=== PATIENT | male | born 1955 | race Caucasian/White ===

== ENCOUNTER 2022-03-21 13:52 | Inpatient (IN) | payer BC ==
[2022-03-21 15:49] VITALS: BMI 31.9
[2022-03-21] MEDS ORDERED: METHOCARBAMOL 500 MG TABLET PO PRN (16:50)
[2022-03-21] MEDS ORDERED: BENZOCAINE/MENTHOL (CHLORASEPTIC ) LOZENGE MM PRN (16:50)
[2022-03-21] MEDS ORDERED: MAGNESIUM CITRATE 300 ML BOTTLE PO PRN (16:50)
[2022-03-21] MEDS ORDERED: LOPERAMIDE HCL 2 MG CAPSULE PO PRN (16:50)
[2022-03-21] MEDS ORDERED: MAG HYDROX/AL HYDROX/SIMETH 30 ML UNIT-DOSE CUP PO PRN (16:50)
[2022-03-21] MEDS ORDERED: NICOTINE 10 MG CARTRIDGE (INHALER) IH PRN (16:50)
[2022-03-21] MEDS ORDERED: ONDANSETRON *ODT* 4 MG TABLET SL PRN (16:50)
[2022-03-21] MEDS ORDERED: BISMUTH SUBSALICYLATE 524 MG/30 ML PO PRN (16:50)
[2022-03-21] MEDS ORDERED: DICYCLOMINE HCL 10 MG CAPSULE PO PRN (16:50)
[2022-03-21] MEDS ORDERED: MAGNESIUM HYDROX 2400MG/30ML ORAL SUSPENSION 30 ML CUP PO PRN (16:50)
[2022-03-21] MEDS ORDERED: ACETAMINOPHEN 325 MG TABLET (FP) PO PRN ×2 (16:50)
[2022-03-21] MEDS ORDERED: IBUPROFEN 600 MG TABLET (FP) PO PRN (16:50)
[2022-03-21] MEDS ORDERED: IBUPROFEN 400 MG TABLET (FP) PO PRN (16:50)
[2022-03-21] MEDS: hydrOXYzine PAMOATE 25 MG CAPSULE (FP) PO SCH ×2 (18:45→22:18)
[2022-03-21] MEDS: AMLODIPINE BESYLATE PO SCH (18:53)
[2022-03-21] MEDS: LOSARTAN POTASSIUM PO SCH (18:53)
[2022-03-21] MEDS: PRENATAL VITAMINS W/ FOLIC ACID TABLET (FP) PO SCH (18:53)
[2022-03-21] MEDS: METOPROLOL SUCCINATE PO SCH (18:53)
[2022-03-21] MEDS ORDERED: ATORVASTATIN CALCIUM 40 MG PO SCH (22:00)
[2022-03-21] MEDS: MELATONIN 5 MG TABLETS PO SCH (22:17)
[2022-03-21] MEDS: THIAMINE HCL 100 MG TABLET (FP) PO SCH (22:18)
[2022-03-22] MEDS: hydrOXYzine PAMOATE 25 MG CAPSULE (FP) PO SCH ×5 (06:01→22:11)
[2022-03-22 12:02] LABS: HEMATOCRIT 32.3 % (35.4-49); HEMOGLOBIN 11.3 GM/dL (11.7-16.9); MCH 36.6 pg (25.7-33.7); MEAN CELL VOLUME 104.5 fl (80-96); MEAN PLT VOLUME 8.6 fl (7.5-11.1); PLATELET COUNT 123 10^3/uL (134-434); RBC 3.09 M/mm3 (4.00-5.60); RDW 16.7 % (11.9-15.9); WHITE BLOOD COUNT 7.7 K/mm3 (4.0-10.0)
[2022-03-22 12:09] LABS: CALCIUM 8.8 mg/dL (8.5-10.1)
[2022-03-22 12:10] LABS: ALBUMIN 3.7 g/dl (3.4-5.0)
[2022-03-22 12:13] LABS: CREATININE 1.6 mg/dL (0.55-1.3)
[2022-03-22 12:14] LABS: TOT PROT 7.3 g/dl (6.4-8.2)
[2022-03-22 12:15] LABS: BILIRUBIN,TOTAL 3.3 mg/dL (0.2-1)
[2022-03-22] MEDS: AMLODIPINE BESYLATE PO SCH (12:25)
[2022-03-22] MEDS: LOSARTAN POTASSIUM PO SCH (12:25)
[2022-03-22] MEDS: METOPROLOL SUCCINATE PO SCH (12:25)
[2022-03-22] MEDS: LOSARTAN POTASSIUM 50 MG TABLET PO SCH (12:36)
[2022-03-22] MEDS: amLODIPine BESYLATE 5 MG TABLET (FP) PO SCH (12:36)
[2022-03-22] MEDS: PRENATAL VITAMINS W/ FOLIC ACID TABLET (FP) PO SCH (12:38)
[2022-03-22] MEDS ORDERED: ATORVASTATIN CA 40 MG TABLET (FP) PO SCH (22:00)
[2022-03-22] MEDS: MELATONIN 5 MG TABLETS PO SCH (22:11)
[2022-03-22] MEDS: THIAMINE HCL 100 MG TABLET (FP) PO SCH (22:11)
[2022-03-23] MEDS: hydrOXYzine PAMOATE 25 MG CAPSULE (FP) PO SCH ×2 (06:01→09:36)
[2022-03-23 06:38] VITALS: RESP 18
[2022-03-23 09:02] VITALS: BP 127/75; PULSE 73; TEMP 97.3
[2022-03-23] MEDS: LOSARTAN POTASSIUM 50 MG TABLET PO SCH (09:35)
[2022-03-23] MEDS: PRENATAL VITAMINS W/ FOLIC ACID TABLET (FP) PO SCH (09:36)
[2022-03-23] MEDS: amLODIPine BESYLATE 5 MG TABLET (FP) PO SCH (09:36)
== END 2022-03-23 09:40 | disposition home or self-care (01) | DRG 897 ==
LOC: YASAS 13:52 → Y3N 17:13 → UNDOADMIN 17:13 → Y3N 03-22 01:13
PROVIDERS: ADMIT Allergy & Immunology; ATTEND Surgery
PROC: HZ2ZZZZ Detoxification Services for Substance Abuse Treatment (ICD-10-PCS; principal; 2022-03-21)
DX: F10.230 Alcohol dependence with withdrawal, uncomplicated (principal); I10 Essential (primary) hypertension
CPT/HCPCS: 36415; 80053; 85027; 86780; C9803-CS; U0003; U0005